=== PATIENT | male | born 2000 | race Two or more races ===

== ENCOUNTER 2024-01-08 21:35 | Emergency (ER) | payer MEDICAID ==
[~2024-01-08] VITALS: Ht 180.3 cm; Wt 100.0 kg
[2024-01-08] MEDS: LORazepam 2MG/ML-1ML VIAL IV ONE (23:13)
[2024-01-08 23:25] LABS: Basophils # (auto) 0 10 ^3/uL (0-0.2); Basophils % (auto) 0.3 % (0.0-2.0); Eosinophils # (auto) 0 10 ^3/uL (0-0.8); Eosinophils % (auto) 0.2 % (0.0-7.0); Hematocrit 45.3 % (41.0-53.0); Hemoglobin 15.4 g/dL (13.5-17.5); Lymphocytes % (auto) 6.7 % (10.0-50.0); Mean Corpuscular Hgb Conc. 34.1 g/dL (32.0-36.0); Mean Corpuscular Volume 88.1 fL (80.0-100.0); Monocytes # (auto) 0.9 10 ^3/uL (0-1.3); Monocytes % (auto) 5.6 % (0.0-12.0); Neutrophils # (auto) 13.4 10 ^3/uL (1.6-8.6); Neutrophils % (auto) 87.2 % (37.0-80.0); Nucleated Red Blood Cells % 0.2 %; Red Blood Cells 5.14 10^6/uL (4.5-5.90); Red Cell Distribution Width 13.3 % (11.8-14.3); White Blood Cell 15.4 10^3/uL (4.4-10.8)
[2024-01-08 23:34] LABS: Alanine Aminotransferase 29 U/L (7-40); Albumin 4.9 g/dL (3.2-4.8); Alkaline Phosphatase 72 U/L (46-116); Anion Gap 8 (5-15); Aspartate Aminotransferase 18 U/L (13-40); BUN/Creatinine Ratio 12.8 (10.0-20.0); Bilirubin, Total 1.2 mg/dL (0.2-1.0); Blood Urea Nitrogen 12 mg/dL (9-23); Calcium 10.2 mg/dL (8.7-10.4); Carbon Dioxide 23 mmol/L (20-30); Chloride 108 mmol/L (98-107); Glucose 99 mg/dL (74-106); Potassium 3.7 mmol/L (3.5-5.1); Sodium 139 mmol/L (136-145)
[2024-01-08 23:35] LABS: Acetaminophen < 2.0 UG/ML (10.0-20.0)
[2024-01-08 23:54] LABS: Salicylate < 3.0 mg/dL (2.8-20.0)
[2024-01-09 00:59] VITALS: BP 132/78; PULSE 90; RESP 20; TEMP 98.6; O2SAT 98
== END 2024-01-09 00:56 | disposition home or self-care (01) ==
LOC: EDBD 21:35 → ER 21:35
DX: F19.129 Other psychoactive substance abuse with intoxication, unspecified (principal); F41.9 Anxiety disorder, unspecified; J45.909 Unspecified asthma, uncomplicated; F17.210 Nicotine dependence, cigarettes, uncomplicated; F12.10 Cannabis abuse, uncomplicated; F14.10 Cocaine abuse, uncomplicated
CPT/HCPCS: 36415; 80053; 80329; 84484; 85025; 93005; 96374; 99284; J2060